=== PATIENT | male | born 1995 | race Caucasian/White ===

== ENCOUNTER 2018-01-20 11:00 | Emergency (ER) | payer SELFPAY ==
[~2018-01-20] VITALS: Ht 175.3 cm; Wt 72.6 kg
[2018-01-20 11:06] VITALS: BP 133/69
--- NOTE | 2018-01-20 11:27 | EKG ---
[address] [address] Test Date: 2018-01-20 Test Time: 11:22:20 Pat Name: ANDREE POP Department: Room: Gender: M Assorter: FREDA : 1995 Requested By: ANTONIO HERNÁNDEZ Order Number: [id number] Reading MD: Daniel Rosario MD Measurements Intervals [facility] Rate: 76 P: 69 [place]: 126 QRS: 92 QRSD: 84 T: 21 QT: 326 QTc: 370 Interpretive Statements SINUS RHYTHM RIGHTWARD AXIS Electronically Signed On 01-22-2018 9:28:55 CDT by Daniel Rosario MD
--- NOTE | 2018-01-20 12:10 | ED.ADGEN ---
Past History Past Medical History: No Pertinent History Past Surgical History: No Surgical History Alcohol Use: Occasionally Drug Use: None Adult General Chief Complaint Chief Complaint Medical screening exam HPI HPI Patient is a 22-year-old male who presents from primary care physician's office for medical screening exam. Reportedly, the patient complained of chest pain, back pain and multiple numerous other medical complaints at office. An EKG was performed and the patient was instructed to coat emergency department. On ED arrival, the patient complaints of low back pain. He looks down appears to be despondent. Does not answer any other questions. He does not nod yes or no when asked specifically if he is hurting anywhere else. He does not provide information in history duration of symptoms. He does not provide any information as to whether or not he takes daily medication or using drugs or alcohol recreationally. He was able to drive to the hospital. Unfortunately, very little information was able to be obtained during a history. Records were obtained from PCPs office were reviewed. [] Review of Systems Review of Systems Unable to obtain due to patient cooperation ote. Allergies Allergies Allergies Coded Allergies Type Severity Reaction Last Updated Verified No Known Drug Allergies 10/09/14 No Physical Exam Physical Exam Constitutional: Well developed, well nourished, no acute distress. [] HENT: Normocephalic, atraumatic, bilateral external ears normal, oropharynx moist, nose normal. [] Eyes: PERRLA, EOMI, conjunctiva normal, no discharge. [] Neck: Normal range of motion, no tenderness, supple.. [] Lungs & Thorax: Bilateral breath sounds clear to auscultation. [] Abdomen: Bowel sounds normal, soft, no tenderness. [] Skin: Warm, dry, no erythema, no rash. [] Back: No bruising or swelling.. [] Extremities: No edema. [] Neurologic: Alert and oriented X to person, place, normal motor function, normal sensory function, no focal deficits noted. [] Psychologic: Affect, flat. [] Current Patient Data Vital Signs Vital Signs Date Time Temp Pulse Resp B/P (MAP) Pulse Ox O2 Delivery O2 Flow Rate FiO2 01/20/18 11:06 98 16 99 Room Air EKG EKG [EKG: Reviewed ] Radiology/Procedures Radiology/Procedures [Chest x-ray: No acute cardiopulmonary disease.] Course & Med Decision Making Course & Med Decision Making Pertinent Labs and Imaging studies reviewed. (See chart for details) [Medical screening exam offered, but declined. Patient did not wish to answer questions, and pulled cardiac leads off his chest and walked out without saying a word. VS, walks with steady agit..] Final Impression Final Impression [Medical screening exam] Dragon Disclaimer Dragon Disclaimer This electronic medical record was generated, in whole or in part, using a voice recognition dictation system. ANTONIO HERNÁNDEZ DO Jan 20, 2018 12:10
--- NOTE | 2018-01-20 12:14 | RAD ---
PA and lateral views of the chest were obtained. History: Chest pain Comparison: none The heart and pulmonary vasculature appear within normal limits. The lungs are clear. The pleural margins are clear. Impression: No acute chest process is seen.
== END 2018-01-20 12:00 | disposition left against medical advice (07) ==
LOC: ER 11:00
DX: M54.5 Low back pain (principal); R07.89 Other chest pain
CPT/HCPCS: 71046; 93005; 99284

== ENCOUNTER 2020-12-26 10:49 | Emergency (ER) | payer OTHER ==
[~2020-12-26] VITALS: Ht 175.3 cm; Wt 83.0 kg
[2020-12-26 11:00] VITALS: BP 146/79
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
== END 2020-12-26 11:38 | disposition home or self-care (01) ==
LOC: ER 10:49
DX: R51.9 Headache, unspecified (principal); V43.52XA Car driver injured in collision with other type car in traffic accident, initial encounter; Y93.89 Activity, other specified; Y92.89 Other specified places as the place of occurrence of the external cause; Y99.8 Other external cause status
CPT/HCPCS: 99281